=== PATIENT | male | born 1980 | race African-American/Black ===

== ENCOUNTER 2019-07-26 18:15 | Emergency (ER) | payer SELFPAY ==
[~2019-07-26] VITALS: Ht 177.8 cm; Wt 73.0 kg
[2019-07-26] MEDS ORDERED: IBUPROFEN 600MG TABLET PO ONE (19:00)
[2019-07-26 19:47] VITALS: BP 97/61
== END 2019-07-26 20:14 | disposition home or self-care (01) ==
LOC: ER 18:15
DX: R07.89 Other chest pain (principal)
CPT/HCPCS: 71045; 93005; 99283